=== PATIENT | male | born 1950 | race Caucasian/White ===

== ENCOUNTER 2016-03-18 11:44 | Day surgery (SDC) | payer OTHER ==
[~2016-03-18] VITALS: Ht 182.9 cm; Wt 129.2 kg
[~2016-03-18 11:44] MED LIST: ADULT LOW STREN81 M2 PO; CLARITIN10 M3 PO; HYDROCHLOROTHIA25 MG PO; Halfprin PO; LEVOTHROID,SY0.05 MG PO; LEXAPRO10 MG PO; LIPITOR40 MG PO; LYRICA50 MG PO; NOHOMEMEDS; NORVASC10 MG PO; PLAVIX75 MG PO; SINGULAIR10 MG PO; TOPROL XL50 MG PO; XIFAXAN200 MG PO; ZESTORETIC 10-1 EAC1 PO; ZOCOR80 M1 PO; Zestril,Prinivil PO
[2016-03-18 12:08] VITALS: BP 153/94
[2016-03-18 15:17] VITALS: BP 114/76
[2016-03-18 16:09] VITALS: BP 129/66; BP 132/76
== END 2016-03-18 16:20 | disposition home or self-care (01) ==
LOC: SDC 11:44 → 2SOUTH 17:06 → EDSTATUS 17:06 → SDC 17:08
DX: N20.1 Calculus of ureter (principal); I10 Essential (primary) hypertension
CPT/HCPCS: 74420; C1758; C1876; J0690; J2250; J3010

== ENCOUNTER 2016-03-27 19:27 | Observation (INO) | payer OTHER ==
[~2016-03-27] VITALS: Ht 182.9 cm; Wt 126.7 kg
[~2016-03-27 19:27] MED LIST changes: -MOTRIN600 MG PO
[2016-03-27 21:15] LABS: HEMATOCRIT 43.5 % (38.0-50.0); MCH 29.7 PG (29.0-34.0); MCHC 34.9 G/DL (30.0-36.0); MEAN PLAT.VOLUME 9.8 uM^3 (9.0-12.4); PLATELET COUNT 211 K/uL (156-360); RBC DIS.WIDTH-CV 12.7 % (11.8-14.6); RBC DIS.WIDTH-SD 38.4 % (39-53); RED BLOOD COUNT 5.12 M/uL (4.00-5.50); WHITE BLOOD COUNT 5.9 K/uL (4.1-10.2)
[2016-03-27 21:20] LABS: CHLORIDE 106 mEq/L (99-109); POTASSIUM 4.1 mEq/L (3.7-5.4); PROTHROMBIN TIME 10.2 (9.2-11.2); PTT 29.8 (25-32); SODIUM 137 mEq/L (136-147)
[2016-03-27 21:22] LABS: GLUCOSE 100 mg/dL (70-99)
[2016-03-27 21:24] LABS: ANION GAP 7 MEQ/L (2-14)
[2016-03-27 21:26] LABS: GFR ESTIMATE (CALCULATED) 43 mL/min/
[2016-03-27 21:27] LABS: UREA NITROGEN (BUN) 31 mg/dL (9-23)
[2016-03-27 21:34] LABS: TROP-I INTERPRETATION NEGATIVE; TROPONIN-I < 0.01 ng/mL (0.0-0.30)
[2016-03-28 01:07] VITALS: BP 134/72
[2016-03-28 04:19] VITALS: BP 107/71
[2016-03-28 05:33] LABS: HEMATOCRIT 38.6 % (38.0-50.0); MCH 30.2 PG (29.0-34.0); MCHC 34.7 G/DL (30.0-36.0); MCV 86.9 FL (86-99); MEAN PLAT.VOLUME 10.3 uM^3 (9.0-12.4); PLATELET COUNT 190 K/uL (156-360); RBC DIS.WIDTH-CV 12.6 % (11.8-14.6); RBC DIS.WIDTH-SD 40.4 % (39-53); RED BLOOD COUNT 4.44 M/uL (4.00-5.50); WHITE BLOOD COUNT 4.4 K/uL (4.1-10.2)
[2016-03-28 06:07] LABS: ALKALINE PHOSPHATASE 41 IU/L (3-129); ANION GAP 9 MEQ/L (2-14); CHLORIDE 107 MEQ/L (99-109); GFR ESTIMATE (CALCULATED) 54 mL/min/; GLUCOSE 90 mg/dL (70-99); POTASSIUM 3.9 MEQ/L (3.7-5.4); SAMPLE HEMOLYSIS CHECK 0; SAMPLE ICTERIC CHECK 0; SAMPLE LIPEMIA CHECK 0; SODIUM 138 MEQ/L (136-147); TOTAL BILIRUBIN 0.5 MG/DL (0.0-1.0); UREA NITROGEN (BUN) 26 mg/dL (9-23)
[2016-03-28 07:29] VITALS: BP 124/70
[2016-03-28 11:35] VITALS: BP 106/61
[2016-03-28] MEDS ORDERED: MOTRIN600 MG PO (14:23)
[2016-03-28 14:27] LABS: ADD MIUA? YES; BILIRUBIN NEGATIVE; BLOOD LARGE; COLOR YELLOW ((YELLOW)); GLUCOSE (STRIP) NEGATIVE; KETONES NEGATIVE; LEUKOCYTES MODERATE; NITRITE NEGATIVE; PROTEIN (STRIP) TRACE; SPECIFIC GRAVITY 1.016 (1.000-1.030); UROBILINOGEN 0.2 MG/DL (0.2-1.0)
[2016-03-28 14:47] LABS: RED BLOOD CELLS TNTC /HPF (0-5)
[2016-03-28 14:48] LABS: BACTERIA 1+ /HPF; CASTS NONE SEEN /LPF; CRYSTALS NONE SEEN; EPITHELIAL CELLS NONE SEEN /HPF; MUCUS NONE SEEN /LPF
== END 2016-03-28 14:57 | disposition home or self-care (01) ==
LOC: EME 19:27 → EDOF 23:07 → 5WEST 03-28 00:13
PROVIDERS: Internal Medicine; Physician Assistant
DX: I82.612 Acute embolism and thrombosis of superficial veins of left upper extremity (principal); N17.9 Acute kidney failure, unspecified; I12.9 Hypertensive chronic kidney disease with stage 1 through stage 4 chronic kidney disease, or unspecified chronic kidney disease; N18.3 Chronic kidney disease, stage 3 (moderate); Z98.890 Other specified postprocedural states; Z87.442 Personal history of urinary calculi
CPT/HCPCS: 71020; 78582; 80048; 80053; 81003; 81240 90; 83090 90; 84484; 85027; 85240 90; 85300 90; 85303 90; 85305 90; 85306 90; 85610; 85613 90; 85730; 85730 90; 86146 90; 86147 90; 93005; 99281; 99285; A9539; A9540; G0378; J7030

== ENCOUNTER → 2016-03-27 | Outpatient (CLI) | payer OTHER ==
[~2016-03-27] MED LIST changes: +MOTRIN600 MG PO
== END | disposition home or self-care (01) ==
LOC: CT 18:19
DX: I82.622 Acute embolism and thrombosis of deep veins of left upper extremity (principal)
CPT/HCPCS: 93971